=== PATIENT | male | born 1940 | race Caucasian/White ===

== ENCOUNTER 2019-07-29 12:25 | Observation (INO) | payer MEDICARE ==
[~2019-07-29] VITALS: Ht 177.8 cm; Wt 67.6 kg
[2019-07-29] MEDS ORDERED: FAMOTIDINE 20 MG/2 ML ONE (12:46)
[2019-07-29] MEDS ORDERED: ONDANSETRON 2MG/ML, 2ML ONE (12:46)
[2019-07-29] MEDS ORDERED: MAALOX/HYOSCYAMINE/LIDOCAINE 45 ML BTL ONE (12:46)
[2019-07-29 12:59] LABS: BASOPHILS # (AUTO) 0.01 x10^3/uL (0-0.1); BASOPHILS % (AUTO) 0 % (0-1); EOSINOPHILS # (AUTO) 0.02 x10^3/uL (0-0.4); EOSINOPHILS % (AUTO) 0 % (1-7); LYMPHOCYTES % (AUTO) 9 % (22-44); MD NO; MEAN CORPUSCULAR HEMOGLOBIN 35.5 pg (27.5-34.5); MEAN CORPUSCULAR VOLUME 104.3 fL (81-97); MEAN PLATELET VOLUME 7.1 fL (7.4-10.4); MONOCYTES # (AUTO) 0.43 x10^3/uL (0.2-0.8); MONOCYTES % (AUTO) 6 % (2-9); NEUTROPHILS # (AUTO) 5.69 x10^3/uL (1.8-6.8); NEUTROPHILS % (AUTO) 84 % (42-75); PLATELET COUNT 213 x10^3/uL (130-400); RED BLOOD COUNT 3.67 x10^6/uL (4.38-5.82); RED CELL DISTRIBUTION WIDTH 13.7 % (9.4-14.8)
[2019-07-29] MEDS ORDERED: ONDANSETRON 2MG/ML, 2ML IVPush ONE (13:00)
[2019-07-29] MEDS ORDERED: MAALOX/HYOSCYAMINE/LIDOCAINE 45 ML BTL PO ONE (13:00)
[2019-07-29] MEDS ORDERED: SODIUM CHLORIDE 0.9% 1,000ML IVBOLUS ONE (13:00)
[2019-07-29] MEDS ORDERED: SODIUM CHLORIDE FLUSH 10ML SYR IVF ONE (13:00)
[2019-07-29] MEDS ORDERED: FAMOTIDINE 20 MG/2 ML IV ONE (13:00)
--- NOTE | 2019-07-29 13:00 | NUR ---
PT UNABLE TO GIVE STOOL SAMPLE AT THIS TIME. PT STATES HE HAS NOTHING LEFT.
[2019-07-29 13:10] LABS: ALANINE AMINOTRANSFERASE 16 U/L (12-78); ANION GAP 5 mmol/L (5-15); CALCIUM 8.1 mg/dL (8.5-10.1); CHLORIDE 98 mmol/L (98-107); CREATININE 1.03 mg/dL (0.7-1.3)
[2019-07-29 13:12] LABS: ALKALINE PHOSPHATASE 62 U/L (45-117); BILIRUBIN,TOTAL 0.6 mg/dL (0.2-1.0)
[2019-07-29] MEDS ORDERED: PLEASE ENTER ALLERGIES MC SCH (14:00)
[2019-07-29 14:02] LABS: PH, VENOUS 7.367 pH (7.320-7.420)
[2019-07-29 14:24] LABS: ACETONE, SERUM Negative (Negative)
[2019-07-29] MEDS ORDERED: OMNIPAQUE 350 MG/ML, 100ML BOTTLE ONE (14:48)
[2019-07-29] MEDS ORDERED: MELATONIN 5 MG TABLET PO PRN (17:00)
[2019-07-29] MEDS ORDERED: BACLOFEN 10 MG TABLET PO PRN (17:00)
[2019-07-29] MEDS ORDERED: GABAPENTIN 300 MG CAPSULE PO PRN (17:00)
[2019-07-29] MEDS ORDERED: BUTALB/APAP/CAFFEINE 50MG/325MG/40MG PO PRN ×2 (17:00)
[2019-07-29] MEDS ORDERED: LACTATED RINGERS 1,000 ML IV ONE (17:00)
[2019-07-29] MEDS ORDERED: ONDANSETRON ODT 4 MG PO PRN (17:00)
[2019-07-29] MEDS ORDERED: hydrALAzine 20 MG/ML, 1ML IVPush PRN (17:00)
[2019-07-29] MEDS ORDERED: LABETALOL 5MG/ML, 20ML IVPush PRN (17:00)
[2019-07-29] MEDS ORDERED: HYDROmorphone 2 MG/ML, 1ML IVPush PRN (17:00)
[2019-07-29 17:04] LABS: MICROSCOPIC INDICATED
--- NOTE | 2019-07-29 17:15 | NUR ---
ATTEMPT TO CALL RPT. RN BUSY WILL CALL BACK.
[2019-07-29 17:23] LABS: BASOPHILS # (AUTO) 0.01 x10^3/uL (0-0.1); BASOPHILS % (AUTO) 0 % (0-1); EOSINOPHILS # (AUTO) 0.03 x10^3/uL (0-0.4); EOSINOPHILS % (AUTO) 1 % (1-7); LYMPHOCYTES # (AUTO) 0.63 x10^3/uL (1-3.4); LYMPHOCYTES % (AUTO) 10 % (22-44); MD NO; MEAN CORPUSCULAR HEMOGLOBIN 35.6 pg (27.5-34.5); MEAN CORPUSCULAR HGB CONC 34.3 g/dL (33.2-36.2); MEAN CORPUSCULAR VOLUME 103.8 fL (81-97); MEAN PLATELET VOLUME 7.3 fL (7.4-10.4); MONOCYTES # (AUTO) 0.51 x10^3/uL (0.2-0.8); MONOCYTES % (AUTO) 9 % (2-9); NEUTROPHILS # (AUTO) 4.87 x10^3/uL (1.8-6.8); NEUTROPHILS % (AUTO) 80 % (42-75); PLATELET COUNT 210 x10^3/uL (130-400); RED BLOOD COUNT 3.57 x10^6/uL (4.38-5.82); RED CELL DISTRIBUTION WIDTH 13.8 % (9.4-14.8)
--- NOTE | 2019-07-29 17:26 | NUR ---
PT STILL UNABLE TO PROVIDE STOOL SAMPLE. WILL RPT TO FLOOR.
[2019-07-29] MEDS: ENOXAPARIN 40 MG/0.4 ML SQ SCH (18:34)
[2019-07-29 18:44] VITALS: BP 156/90
[2019-07-29] MEDS: ONDANSETRON 2MG/ML, 2ML IVPush PRN (19:00)
[2019-07-30 02:00] VITALS: BP 148/84
[2019-07-30] MEDS: ONDANSETRON 2MG/ML, 2ML IVPush PRN ×3 (02:13→18:37)
[2019-07-30] MEDS: INSULIN LISPRO 100 UNITS/ML, PEN SQ-INSULIN SCH ×5 (02:14→20:46)
[2019-07-30 06:18] LABS: ALANINE AMINOTRANSFERASE 17 U/L (12-78); ALBUMIN 2.9 g/dL (3.4-5.0); ANION GAP 3 mmol/L (5-15); CALCIUM 8.5 mg/dL (8.5-10.1); CHLORIDE 100 mmol/L (98-107); CREATININE 1.05 mg/dL (0.7-1.3)
[2019-07-30 06:29] LABS: ALKALINE PHOSPHATASE 64 U/L (45-117); BILIRUBIN,TOTAL 0.6 mg/dL (0.2-1.0); TOTAL PROTEIN 5.9 g/dL (6.4-8.2)
[2019-07-30 06:53] VITALS: BP 151/82
[2019-07-30] MEDS ORDERED: GADOTERATE 7.5 MMOL/15 ML SYR ONE (08:06)
[2019-07-30] MEDS: CHOLECALCIFEROL 400 UNITS TABLET PO SCH (08:50)
[2019-07-30] MEDS: ZINC SULFATE 220 MG CAPSULE PO SCH (08:50)
[2019-07-30] MEDS: MULTIVITS,STRESS FORMULA 1 TABLET PO SCH (08:50)
[2019-07-30] MEDS: ASCORBIC ACID 500 MG TABLET PO SCH ×2 (08:51→17:00)
[2019-07-30 12:42] VITALS: BP 133/69
[2019-07-30] MEDS ORDERED: CYANOCOBALAMIN 1,000 MCG/ML, 1ML IM ONE (13:00)
[2019-07-30] MEDS: ENOXAPARIN 40 MG/0.4 ML SQ SCH (17:00)
[2019-07-30 18:49] VITALS: BP 160/94
[2019-07-31 02:00] VITALS: BP 157/89
[2019-07-31] MEDS: ONDANSETRON 2MG/ML, 2ML IVPush PRN ×2 (02:39→08:59)
[2019-07-31 05:39] LABS: BASOPHILS # (AUTO) 0.02 x10^3/uL (0-0.1); BASOPHILS % (AUTO) 0 % (0-1); EOSINOPHILS # (AUTO) 0.08 x10^3/uL (0-0.4); EOSINOPHILS % (AUTO) 1 % (1-7); LYMPHOCYTES # (AUTO) 0.56 x10^3/uL (1-3.4); LYMPHOCYTES % (AUTO) 8 % (22-44); MD NO; MEAN CORPUSCULAR HGB CONC 33.5 g/dL (33.2-36.2); MEAN CORPUSCULAR VOLUME 104.4 fL (81-97); MEAN PLATELET VOLUME 7.4 fL (7.4-10.4); MONOCYTES # (AUTO) 0.52 x10^3/uL (0.2-0.8); MONOCYTES % (AUTO) 7 % (2-9); NEUTROPHILS # (AUTO) 6.13 x10^3/uL (1.8-6.8); NEUTROPHILS % (AUTO) 84 % (42-75); PLATELET COUNT 192 x10^3/uL (130-400); RED BLOOD COUNT 3.46 x10^6/uL (4.38-5.82); RED CELL DISTRIBUTION WIDTH 13.8 % (9.4-14.8)
[2019-07-31 05:50] LABS: ALBUMIN 2.8 g/dL (3.4-5.0); ANION GAP 5 mmol/L (5-15); CALCIUM 8.2 mg/dL (8.5-10.1); CHLORIDE 99 mmol/L (98-107); CREATININE 0.98 mg/dL (0.7-1.3)
[2019-07-31] MEDS: INSULIN LISPRO 100 UNITS/ML, PEN SQ-INSULIN SCH ×4 (08:07→20:25)
[2019-07-31] MEDS: CHOLECALCIFEROL 400 UNITS TABLET PO SCH (08:07)
[2019-07-31] MEDS: ASCORBIC ACID 500 MG TABLET PO SCH ×2 (08:08→17:20)
[2019-07-31] MEDS: ZINC SULFATE 220 MG CAPSULE PO SCH (08:08)
[2019-07-31] MEDS: MULTIVITS,STRESS FORMULA 1 TABLET PO SCH (08:08)
[2019-07-31 08:58] VITALS: BP 160/102
[2019-07-31] MEDS: CEFTRIAXONE PMX 1GM/50ML 50 ML IV SCH ×2 (09:48→20:23)
[2019-07-31 13:28] VITALS: BP 128/67
[2019-07-31] MEDS ORDERED: ONDA4TAB13 PO (14:09)
[2019-07-31] MEDS ORDERED: CHOL400T2 PO (14:09)
[2019-07-31] MEDS ORDERED: ZINC220C7 PO (14:09)
[2019-07-31] MEDS ORDERED: MULT1TAB76 PO (14:09)
[2019-07-31] MEDS ORDERED: ASCO500T9 PO (14:09)
[2019-07-31] MEDS: ENOXAPARIN 40 MG/0.4 ML SQ SCH (17:20)
[2019-07-31 19:21] VITALS: BP 120/70
[2019-08-01 00:48] VITALS: BP 154/96
[2019-08-01] MEDS: ONDANSETRON 2MG/ML, 2ML IVPush PRN ×2 (01:12→08:05)
[2019-08-01 07:05] VITALS: BP 173/105
[2019-08-01] MEDS: ASCORBIC ACID 500 MG TABLET PO SCH (07:57)
[2019-08-01] MEDS: CHOLECALCIFEROL 400 UNITS TABLET PO SCH (07:57)
[2019-08-01] MEDS: ZINC SULFATE 220 MG CAPSULE PO SCH (07:57)
[2019-08-01] MEDS: MULTIVITS,STRESS FORMULA 1 TABLET PO SCH (07:57)
[2019-08-01] MEDS: INSULIN LISPRO 100 UNITS/ML, PEN SQ-INSULIN SCH ×2 (07:58→11:00)
[2019-08-01] MEDS: CEFTRIAXONE PMX 1GM/50ML 50 ML IV SCH (09:05)
[2019-08-01 10:41] VITALS: BP 133/78
== END 2019-08-01 11:27 | disposition home or self-care (01) ==
LOC: ED 14:22 → EDIP 15:27 → INTOOBSV 15:27 → 4EST 18:07 → DCLOUNGE 08-01 11:15
PROVIDERS: ADMIT Internal Medicine; ATTEND Family Medicine
DX: R11.2 Nausea with vomiting, unspecified (principal); R19.7 Diarrhea, unspecified; E86.0 Dehydration; K85.90 Acute pancreatitis without necrosis or infection, unspecified; K80.20 Calculus of gallbladder without cholecystitis without obstruction; C79.31 Secondary malignant neoplasm of brain; D53.9 Nutritional anemia, unspecified; E87.1 Hypo-osmolality and hyponatremia; E11.65 Type 2 diabetes mellitus with hyperglycemia; E44.1 Mild protein-calorie malnutrition; I10 Essential (primary) hypertension; E77.8 Other disorders of glycoprotein metabolism; Z79.4 Long term (current) use of insulin; Z85.47 Personal history of malignant neoplasm of testis; Z79.899 Other long term (current) drug therapy
CPT/HCPCS: 36415; 70450; 70553; 74021; 74177; 76700; 80053; 80069; 81001; 82010; 82607; 82803; 82962; 83690; 83735; 84100; 84443; 85025; 87077; 87086; 87186; 93005; 96361; 96365; 96366; 96372; 96375; 96376; 97162; 97165; 99285; A9575; G0378; J0696; J1650; J1815; J2405; J3420; J3490; J7030; J7120; Q0162; Q9967